=== PATIENT | male | born 1995 | race Caucasian/White ===

== ENCOUNTER 2017-10-23 20:46 | Emergency (ER) | payer BC ==
[~2017-10-23] VITALS: Ht 180.3 cm; Wt 129.5 kg
[2017-10-23 20:49] VITALS: BP 117/65; TEMP 97
[2017-10-23] MEDS ORDERED: EPI-PEN JR0.5 MG/ML IM (20:51)
[2017-10-23 23:27] VITALS: PULSE 97
== END 2017-10-23 23:27 | disposition home or self-care (01) ==
LOC: COL.ER 20:46
DX: M25.562 Pain in left knee (principal)
CPT/HCPCS: J1885

== ENCOUNTER → 2017-11-03 | Outpatient (CLI) | payer BC ==
[~2017-11-03] MED LIST: EPI-PEN JR0.5 MG/ML IM
== END ==
LOC: COL.RAD 08:55
DX: S83.512A Sprain of anterior cruciate ligament of left knee, initial encounter (principal); S83.222A Peripheral tear of medial meniscus, current injury, left knee, initial encounter; S83.412A Sprain of medial collateral ligament of left knee, initial encounter; S83.422A Sprain of lateral collateral ligament of left knee, initial encounter; M89.8X8 Other specified disorders of bone, other site